=== PATIENT | male | born 1975 | race Caucasian/White ===

== ENCOUNTER 2017-10-13 16:51 | Emergency (ER) | payer OTHER ==
[~2017-10-13] VITALS: Ht 188 cm; Wt 102.2 kg
[~2017-10-13 16:51] MED LIST: FLEXERIL10 MG PO; NAPROSYN500 MG PO
[2017-10-13] MEDS ORDERED: TRAMADOL HCL50 MG PO (20:59)
[2017-10-13] MEDS ORDERED: NAPROSYN500 MG PO (20:59)
[2017-10-13] MEDS ORDERED: FLEXERIL10 MG PO (20:59)
[2017-10-13 21:18] VITALS: BP 136/88
== END 2017-10-13 21:33 | disposition home or self-care (01) ==
LOC: EME 16:51
DX: S16.1XXA Strain of muscle, fascia and tendon at neck level, initial encounter (principal); S43.81XA Sprain of other specified parts of right shoulder girdle, initial encounter; M54.5 Low back pain; V43.52XA Car driver injured in collision with other type car in traffic accident, initial encounter; Y92.411 Interstate highway as the place of occurrence of the external cause; Z88.5 Allergy status to narcotic agent
CPT/HCPCS: 72040; 99281; 99284